=== PATIENT | male | born 2000 | race Caucasian/White ===

== ENCOUNTER 2022-11-23 20:44 | Emergency (ER) | payer BC ==
[2022-11-23] MEDS ORDERED: Lidocaine 1% (PF) 30 ML VIAL ONE (21:38)
== END 2022-11-23 22:42 | disposition home or self-care (01) ==
LOC: CSHERS 20:44
DX: S61.213A Laceration without foreign body of left middle finger without damage to nail, initial encounter (principal); W25.XXXA Contact with sharp glass, initial encounter
CPT/HCPCS: 12002; J2001